=== PATIENT | female | born 1965 | race Caucasian/White ===

== ENCOUNTER 2019-05-21 01:56 | Emergency (ER) | payer BC ==
[~2019-05-21] VITALS: Ht 152.4 cm; Wt 38.6 kg
--- NOTE | 2019-05-21 02:05 | NUR ---
Pt. ambulated into ED accompanied by detox facility staff for medical clearance, pt. states she is detoxing from alcohol use, pt. is A/Ox4, RR rate even and unlabored, speaks in clear and complete sentences, bed in low position,
--- NOTE | 2019-05-21 02:12 | NUR ---
at bedside for MSE
--- NOTE | 2019-05-21 02:22 | NUR ---
Urine specimen - cloudy w/ sediment, collected and given to phleb. tech. at bedside for blood draw,
--- NOTE | 2019-05-21 02:26 | NUR ---
regulatory technician. at bedside for CXR,
[2019-05-21 02:33] LABS: *BILIRUBIN,URIN NEGATIVE (NEGATIVE); *BLOOD, URINE 1+ (NEGATIVE); *COLOR,URINE YELLOW (YELLOW); *KETONES,URINE NEGATIVE (NEGATIVE); *UROBILINOGEN,URINE 0.2 E.U./dl (NORMAL); LEUKOCYTE ESTERASE ,URINE NEGATIVE (NEGATIVE); NITRITE, URINE NEGATIVE (NEGATIVE); PH,URINE 6.5 (5.0-8.0); UGLUCOSE NEGATIVE (NEGATIVE)
[2019-05-21 02:37] LABS: BASOPHILS # (AUTO) 0.1 K/uL (0.0-8.0); BASOPHILS % (AUTO) 1.3 % (0.0-2.0); EOSINOPHILS # (AUTO) 0.1 K/uL (0.0-0.7); EOSINOPHILS % (AUTO) 1.6 % (0.0-7.0); HEMATOCRIT 44.5 % (31.2-41.9); HEMOGLOBIN 14.9 g/dL (10.9-14.3); LYMPHOCYTES # (AUTO) 1.6 K/uL (20.0-40.0); LYMPHOCYTES % (AUTO) 18.3 % (20.5-51.5); MEAN CORPUSCULAR HEMOGLOBIN 31.2 uug (24.7-32.8); MEAN CORPUSCULAR HGB CONC 33 g/dL (32.3-35.6); MEAN CORPUSCULAR VOLUME 93.5 fL (75.5-95.3); MONOCYTES # (AUTO) 0.6 K/uL (2.0-10.0); MONOCYTES % (AUTO) 7.4 % (0.0-11.0); NEUTROPHILS # (AUTO) 6.1 K/uL (1.8-8.9); NEUTROPHILS % (AUTO) 71.4 % (38.5-71.5); PLATELET COUNT (AUTO) 205 K/uL (179-408); RED BLOOD CELL COUNT(AUTO) 4.77 MIL/uL (3.63-4.92); WHITE BLOOD COUNT (AUTO) 8.6 K/uL (3.8-11.8)
[2019-05-21 02:39] LABS: *CLARITY,URINE HAZY (CLEAR)
[2019-05-21 02:44] LABS: BACTERIA,URINE FEW /HPF (NONE SEEN); CALCIUM OXALATE CRYSTALS,UR MODERATE /HPF (NONE SEEN); MUCUS,URINE MODERATE /LPF (0-FEW); RBC,URINE 0-3 /HPF (0-3); SQUAMOUS EPITHELIAL CELL,UR MANY /HPF (NONE SEEN); WBC,URINE 0-3 /HPF (0-3)
[2019-05-21 02:47] LABS: ALANINE AMINOTRANSFERASE 232 U/L (14-59); ALKALINE PHOSPHATASE 101 U/L (50-136); ASPARTATE AMINOTRANSFERASE 174 U/L (15-37); BILIRUBIN,DIRECT 0.1 mg/dL (0.0-0.2); BILIRUBIN,TOTAL 0.4 mg/dL (0.2-1.0); CARBON DIOXIDE 22 mmol/L (21-32); CHLORIDE 104 mmol/L (98-107); CREATININE 0.7 mg/dL (0.6-1.3); GLUCOSE 92 mg/dL (74-106); POTASSIUM 3.9 mmol/L (3.5-5.1); TOTAL PROTEIN, SERUM 7.8 g/dL (6.4-8.2); UREA NITROGEN, BLOOD 12 mg/dL (7-18)
[2019-05-21 02:49] LABS: ACETAMINOPHEN < 2.0 ug/mL (10-30)
[2019-05-21 02:53] LABS: ETHANOL 218 MG/DL (0-0)
[2019-05-21 02:55] LABS: *AMPHETAMINE, URINE NEGATIVE (NEGATIVE); *BARBITURATE, URINE NEGATIVE (NEGATIVE); *CANNABINOID, URINE POSITIVE (NEGATIVE); *COCCAINE, URINE NEGATIVE (NEGATIVE); *OPIATE, URINE NEGATIVE (NEGATIVE); *PHENCYCLIDINE SCREEN,URINE NEGATIVE (NEGATIVE)
--- NOTE | 2019-05-21 03:14 | NUR ---
[facility] hotline called for xray results. Shoe Polisher stated she will have it read and published.
--- NOTE | 2019-05-21 03:26 | NUR ---
Patient discharged to home in stable conditon. Written and verbal after care instructions given. Patient verbalizes understanding of instructions. Pt. d/c per MD order, d/c papers signed, all belongings w/ pt., ID band removed, ambulated off unit w/ steady gait accompanied by detox facility staff [email or web address]
== END 2019-05-21 03:28 | disposition home or self-care (01) ==
LOC: ER 02:00
DX: F19.90 Other psychoactive substance use, unspecified, uncomplicated (principal); F11.10 Opioid abuse, uncomplicated; F17.210 Nicotine dependence, cigarettes, uncomplicated
CPT/HCPCS: 36415; 71045; 80048; 80076; 80307; 81000; 81001; 82140; 84443; 84484; 84702; 85025; 85730; 93005; 99284; 99406; G0480 ×2; G0481; 70030-TC; A4663